=== PATIENT | female | born 1960 | race Caucasian/White ===

== ENCOUNTER 2018-04-26 14:31 | Outpatient (CLI) | payer OTHER ==
--- NOTE | 2018-04-26 15:19 | MMO ---
BILATERAL MAMMOGRAMS: HISTORY: Screening mammography. COMPARISON: Multiple exams, back to 12/06/2010. FINDINGS: Heterogeneously dense fibroglandular densities. Multiple partially obscured, oval, and lobular isode nse nodules of varying size throughout each breast are stable and consistent with a benign process. No new dominant mass or suspicious calcifications. The study was evaluated with the assistance of co mputer aided detection. IMPRESSION: BI-RADS Category 2-Benign findings. Suggest routine followup. POS: [facility]
== END 2018-04-26 14:32 | disposition home or self-care (01) ==
LOC: SCSMAMMO 14:31
PROVIDERS: ATTEND Family Medicine
DX: Z12.31 Encounter for screening mammogram for malignant neoplasm of breast (principal); Z00.00 Encounter for general adult medical examination without abnormal findings
CPT/HCPCS: 77067

== ENCOUNTER 2018-06-20 16:26 | Outpatient (CLI) | payer OTHER ==
--- NOTE | 2018-06-20 18:48 | RAD ---
2 VIEWS CHEST: Date: 06/20/18 HISTORY: Obesity. Palpable left clavicular knot. FINDINGS: PA and lateral views of chest obtained. Images demonstrate the lungs to be well aerated. No evidence of acute intrathoracic abnormality seen. No evidence of effusions seen. There may be some areas of mi nimal linear density in the left lung base compatible with scarring. No evidence of osseous lesions seen. If there is concern for a palpable soft tissue lesion, correlate with clinical exam. This may represent a soft tissue lesion. If this is palpated, then correlation w ith MRI may be of use. IMPRESSION: No evidence of acute intrathoracic abnormality seen. POS: [facility]
== END 2018-06-20 16:27 | disposition home or self-care (01) ==
LOC: BICRAD 16:26
PROVIDERS: ATTEND Family Medicine
DX: E66.9 Obesity, unspecified (principal)
CPT/HCPCS: 71046

== ENCOUNTER 2019-11-14 11:17 | Emergency (ER) | payer OTHER, SELFPAY ==
--- NOTE | 2019-11-17 01:33 | EKG ---
Test Reason : Blood Pressure : / mmHG Vent. Rate : 062 BPM Atrial Rate : 062 BPM P-R Int : 162 ms QRS Dur : 084 ms QT Int : 416 ms P-R-T Axes : 068 011 035 degrees QTc Int : 422 ms Normal sinus rhythm Normal ECG Confirmed by ELLIOT ALFARO ([id number]), manuscript editor ANDREW CUI ([id number]) on 11/17/2019 1:32:44 AM Referred By: Confirmed By:ELLIOT Oswald
== END 2019-11-14 12:32 | disposition home or self-care (01) ==
LOC: ERS 11:17
DX: R20.2 Paresthesia of skin (principal); I10 Essential (primary) hypertension; E78.5 Hyperlipidemia, unspecified; E66.9 Obesity, unspecified
CPT/HCPCS: 93005

== ENCOUNTER 2021-02-16 12:06 | Emergency (ER) | payer BC ==
[~2021-02-16 12:06] MED LIST: Iopamidol-370 76% 500 ML 1 ML ONE
[2021-02-16 12:56] LABS: #Basophils 0.1 thou/uL (0.0-0.2); #Eosinphils 0.5 thou/uL (0.0-0.7); #Lymphocytes 2.9 thou/uL (1.20-3.40); #Monocytes 0.6 thou/uL (0.11-0.59); #Neutrophils 7.2 thou/uL (1.40-6.50); %Basophils 0.6 % (0.0-1.0); %Eosinophils 4.1 % (0.0-10.0); %Lymphocytes 25.7 % (21.0-51.0); %Monocytes 5.7 % (0.0-10.0); Hemoglobin 11.9 g/dL (12.0-16.0); Mean Corpuscular HGB CONC 33.8 g/dL (32.0-36.0); Mean Corpuscular Hemoglobin 29.9 pg (27.0-31.0); Mean Corpuscular Volume 88.4 fL (78.0-98.0); Mean Platelet Volume 7.4 fL (7.4-10.4); Platelet Count 271 thou/uL (130-400); RBC Distribution Width 13.2 % (11.5-14.5); Red Blood Cell (RBC) Count 3.96 mill/uL (4.20-5.40); White Blood Cell (WBC) Count 11.2 thou/uL (4.8-10.8)
[2021-02-16 13:06] LABS: ALT (SGPT) 16 U/L (8-55); AST (SGOT) 13 U/L (5-34); Alkaline Phosphatase 67 U/L (40-110); Anion Gap 15 mmol/L (10-20); BUN (Urea Nitrogen) 13 mg/dL (9.8-20.1); Bilirubin, Total 0.6 mg/dL (0.2-1.2); Calc. Creatinine Clearance 0 mL/min (70-130); Calcium 9.4 mg/dL (7.8-10.44); Carbon Dioxide 26 mmol/L (22-29); Chloride 100 mmol/L (98-107); Globulin 3.6 g/dL (2.4-3.5); Glucose 97 mg/dL (70-105); Potassium 4.3 mmol/L (3.5-5.1); Protein, Total 7.6 g/dL (6.0-8.3); Sodium 137 mmol/L (136-145)
[2021-02-16] MEDS ORDERED: cloNIDine 0.1 MG TAB ONE (15:58)
[2021-02-17 12:36] LABS: SARS-CoV-2 PCR by NAA Not Detected (NotDetected)
== END 2021-02-16 16:45 | disposition home or self-care (01) ==
LOC: ERS 12:06
DX: J18.9 Pneumonia, unspecified organism (principal); Z20.822 Contact with and (suspected) exposure to COVID-19; E78.5 Hyperlipidemia, unspecified; I10 Essential (primary) hypertension; E66.9 Obesity, unspecified; Z79.82 Long term (current) use of aspirin; Z79.899 Other long term (current) drug therapy
CPT/HCPCS: 36415; 71046; 71275; 80053; 83880; 84484; 85025; 85379; 93005; Q9967; U0003; U0005

== ENCOUNTER 2021-10-04 14:32 | Outpatient (CLI) | payer BC | END 2021-10-04 14:33 | disposition home or self-care (01) | LOC: BICULT 14:32 | PROVIDERS: ATTEND Nurse Practitioner Family | DX: I10 Essential (primary) hypertension (principal); E78.5 Hyperlipidemia, unspecified; G47.30 Sleep apnea, unspecified; I65.21 Occlusion and stenosis of right carotid artery; Z82.3 Family history of stroke | CPT/HCPCS: 93880 ==

== ENCOUNTER 2022-01-31 11:48 | Outpatient (CLI) | payer BC | END 2022-01-31 11:49 | disposition home or self-care (01) | LOC: RAD 11:48 | PROVIDERS: ATTEND Nurse Practitioner Family | DX: M25.561 Pain in right knee (principal); M17.11 Unilateral primary osteoarthritis, right knee ==